=== PATIENT | male | born 1970 | race Two or more races ===

== ENCOUNTER → 2021-07-11 | Emergency (ER) | payer MEDICAID, OTHER ==
[~2021-07-11] VITALS: Ht 180.3 cm; Wt 95.3 kg
[2021-07-12 01:34] LABS: Urine Bacteria NONE SEEN /hpf (None Seen); Urine Blood 3+ /uL (Negative); Urine Hyaline Cast MANY /lpf (0 - 2); Urine Specific Gravity 1.022 (1.001-1.035); Urine WBC 979 /hpf (0 - 3); Urine WBC Clumps PRESENT /hpf (None Seen)
[2021-07-12 02:13] VITALS: BP 130/85
== END | disposition left against medical advice (07) ==
LOC: ER 21:13
DX: R31.9 Hematuria, unspecified (principal); Z53.21 Procedure and treatment not carried out due to patient leaving prior to being seen by health care provider
CPT/HCPCS: 81001